=== PATIENT | male | born 1935 | race African-American/Black ===

== ENCOUNTER 2018-10-13 14:11 | Inpatient (IN) | payer MEDICARE, OTHER ==
[~2018-10-13] VITALS: Ht 182.9 cm; Wt 98.9 kg
[~2018-10-13 14:11] MED LIST: VERAPAMIL
[2018-10-13] MEDS ORDERED: ONDANSETRON HCL 4MG/2ML INJ IV STA (14:35)
[2018-10-13] MEDS ORDERED: SODIUM CHLORIDE 0.9% 1,000 ML IV ONE (14:35)
[2018-10-13 15:04] LABS: BASOPHILS % 0.7 % (0.0-2.0); EOSINOPHILS % 0.1 % (0.0-5.0); HEMATOCRIT. 31.4 % (42.0-52.0); HEMOGLOBIN. 10.1 g/dL (14.0-18.0); LYMPHOCYTES % 17.7 % (20.0-50.0); MEAN CORPUSCULAR HEMOGLOBIN 28.6 pg (28.0-32.0); MEAN CORPUSCULAR VOLUME 89.5 fL (80.0-94.0); MEAN PLATELET VOLUME 8.9 fl (7.4-10.4); NEUTROPHILS % 68.5 % (40.0-76.0); PLATELET 147 x1000/uL (130-400); RED BLOOD CELL COUNT 3.52 mill/uL (4.7-6.1); RED CELL DISTRIBUTION WIDTH 14.7 % (11.6-14.6)
[2018-10-13 15:12] LABS: INR 1.2; PROTHROMBIN TIME 11.8 sec (9.1-11.1)
[2018-10-13 15:19] LABS: CHLORIDE 108 mEq/L (98-107)
[2018-10-13] MEDS ORDERED: PANTOPRAZOLE SODIUM 40 MG/VIAL IV ONE (16:00)
[2018-10-13] MEDS ORDERED: SODIUM CHLORIDE 0.9% 1,000 ML IV SCH (20:26)
[2018-10-13] MEDS ORDERED: DIPHENHYDRAMINE 50MG/ML VIAL IV PRN (20:30)
[2018-10-13] MEDS ORDERED: ONDANSETRON HCL 4MG/2ML INJ IV PRN (20:30)
[2018-10-13] MEDS ORDERED: PANTOPRAZOLE SODIUM 40 MG/VIAL IV SCH (21:00)
[2018-10-13] MEDS: ACETAMINOPHEN 325MG TABLET PO PRN (23:10)
[2018-10-14] MEDS ORDERED: DEXTROSE 50% WATER 50ML SYRINGE IV PRN (01:25)
[2018-10-14] MEDS: INSULIN LISPRO 100 UNITS/ML SUBCUT SCH ×4 (01:35→21:08)
[2018-10-14 05:54] LABS: HEMATOCRIT. 29.4 % (42.0-52.0); HEMOGLOBIN. 9.4 g/dL (14.0-18.0); MEAN CORPUSCULAR HEMOGLOBIN 28.8 pg (28.0-32.0); MEAN CORPUSCULAR VOLUME 90.3 fL (80.0-94.0); MEAN PLATELET VOLUME 9.3 fl (7.4-10.4); PLATELET 149 x1000/uL (130-400); RED BLOOD CELL COUNT 3.25 mill/uL (4.7-6.1); RED CELL DISTRIBUTION WIDTH 14.9 % (11.6-14.6)
[2018-10-14 06:03] LABS: CHLORIDE 109 mEq/L (98-107)
[2018-10-14 06:17] LABS: INR 1.1; PARTIAL THROMBOPLASTIN TIME 23.6 sec (23.4-31.0)
[2018-10-14 07:03] LABS: PLATELET ESTIMATE NORMAL
[2018-10-14] MEDS: ACETAMINOPHEN 325MG TABLET PO PRN ×4 (07:22→21:17)
[2018-10-14] MEDS ORDERED: VER40 MT (10:05)
[2018-10-14] MEDS ORDERED: VERA240C2 MT (10:08)
[2018-10-14] MEDS ORDERED: NAPR500T7 MT (10:08)
[2018-10-14] MEDS ORDERED: GABA-531 MT (10:08)
[2018-10-14 10:16] VITALS: BP 154/90
[2018-10-14] MEDS: PANTOPRAZOLE SODIUM 40 MG/VIAL IV SCH ×2 (11:15→21:17)
[2018-10-14 12:00] VITALS: BP_SYST 154; BP_SYST 54; BP_DIAS 89
[2018-10-14] MEDS: BLOOD SUGAR DIAGNOSTIC STRIP TEST SCH ×3 (12:42→21:11)
[2018-10-14] MEDS ORDERED: SIMETHICONE 40 MG/0.6 ML 30ML ONE (15:01)
[2018-10-14] MEDS ORDERED: MIDAZOLAM HCL 2 MG/2 ML VIAL IV PRN (15:06)
[2018-10-14] MEDS ORDERED: MIDAZOLAM HCL 5 MG/5 ML VIAL ONE (15:11)
[2018-10-14] MEDS ORDERED: FENTANYL CITRATE/PF 50MCG/ML 2ML VIAL ONE (15:11)
[2018-10-14] MEDS ORDERED: SODIUM CHLORIDE 0.9% 10ML VIAL ONE (16:10)
[2018-10-14 17:21] VITALS: BP 185/101
[2018-10-14] MEDS ORDERED: HYDRALAZINE 20MG/ML VIAL IV PRN (17:30)
[2018-10-14] MEDS ORDERED: CLONIDINE 0.1MG TABLET PO PRN (17:30)
[2018-10-14] MEDS ORDERED: IPRATROPIUM/ALBUTEROL 0.5-3(2.5)MG/3ML NEB HHN PRN (17:30)
[2018-10-14 20:00] VITALS: BP 119/71
[2018-10-14] MEDS: SUCRALFATE 1 G/10 ML UDC PO SCH (21:17)
[2018-10-14] MEDS: GABAPENTIN 300MG CAPSULE PO SCH (21:17)
[2018-10-14] MEDS: VERAPAMIL HCL 80 MG TABLET PO SCH (21:21)
[2018-10-15] VITALS: BP 104/63
[2018-10-15 03:59] VITALS: BP 130/78
[2018-10-15] MEDS: ACETAMINOPHEN 325MG TABLET PO PRN (04:35)
[2018-10-15] MEDS: VERAPAMIL HCL 80 MG TABLET PO SCH ×2 (05:14→14:45)
[2018-10-15] MEDS: GABAPENTIN 300MG CAPSULE PO SCH ×2 (05:14→14:45)
[2018-10-15] MEDS: SUCRALFATE 1 G/10 ML UDC PO SCH ×2 (05:14→13:14)
[2018-10-15] MEDS: INSULIN LISPRO 100 UNITS/ML SUBCUT SCH ×2 (06:28→13:16)
[2018-10-15] MEDS: BLOOD SUGAR DIAGNOSTIC STRIP TEST SCH ×2 (06:29→13:06)
[2018-10-15] MEDS: PANTOPRAZOLE SODIUM 40 MG/VIAL IV SCH (10:22)
[2018-10-15 13:00] VITALS: BP 120/70
[2018-10-15 13:36] VITALS: BP 120/70
[2018-10-15 14:43] VITALS: BP 122/74
== END 2018-10-15 15:47 | disposition home or self-care (01) | DRG 378 ==
LOC: ER 14:14 → 8WST 16:18 → EDBEDREQ 16:28 → ENRESERV 10-14 07:22
PROVIDERS: ADMIT Internal Medicine; ATTEND Internal Medicine
PROC: 0DB68ZX Excision of Stomach, Via Natural or Artificial Opening Endoscopic, Diagnostic (ICD-10-PCS; principal; 2018-10-14)
DX: K29.71 Gastritis, unspecified, with bleeding (principal); I67.82 Cerebral ischemia; N17.9 Acute kidney failure, unspecified; K25.4 Chronic or unspecified gastric ulcer with hemorrhage; K44.9 Diaphragmatic hernia without obstruction or gangrene; D64.9 Anemia, unspecified; I10 Essential (primary) hypertension; M19.90 Unspecified osteoarthritis, unspecified site; M50.30 Other cervical disc degeneration, unspecified cervical region; E11.65 Type 2 diabetes mellitus with hyperglycemia; T39.395A Adverse effect of other nonsteroidal anti-inflammatory drugs [NSAID], initial encounter; Y92.89 Other specified places as the place of occurrence of the external cause; Z83.3 Family history of diabetes mellitus; Z87.11 Personal history of peptic ulcer disease; Z79.899 Other long term (current) drug therapy
CPT/HCPCS: 36415; 71045; 82962; 83036; 84484; 86850; 86900; 88305; 88312; 88313; 93005; 93970; 96361; 96374; 96375; 99285; C9113; J1815; J2250; J2405; J3010; J7030; J7620

== ENCOUNTER 2019-01-31 07:36 | Emergency (ER) | payer MEDICARE, OTHER ==
[~2019-01-31] VITALS: Ht 182.9 cm; Wt 91.4 kg
[~2019-01-31 07:36] MED LIST changes: +GABA-531 MT; +NAPR500T7 MT; +VERA240C2 MT; -VERAPAMIL
[2019-01-31] MEDS ORDERED: ONDANSETRON HCL 4MG/2ML INJ IV STA (07:56)
[2019-01-31] MEDS ORDERED: SODIUM CHLORIDE 0.9% 1,000 ML IV ONE (07:56)
[2019-01-31] MEDS ORDERED: MORPHINE SULFATE 4 MG/ML CPJ (NOT FOR IM USE) IV STA (07:56)
[2019-01-31] MEDS ORDERED: HYDRALAZINE 20MG/ML VIAL IV ONE (08:00)
[2019-01-31 08:14] LABS: BASOPHILS % 0.7 % (0.0-2.0); EOSINOPHILS % 1.8 % (0.0-5.0); HEMOGLOBIN. 13.3 g/dL (14.0-18.0); LYMPHOCYTES % 58.7 % (20.0-50.0); MEAN CORPUSCULAR HEMOGLOBIN 24.9 pg (28.0-32.0); MEAN CORPUSCULAR VOLUME 80.5 fL (80.0-94.0); MEAN PLATELET VOLUME 8.6 fl (7.4-10.4); MONOCYTES % 13.7 % (2.0-8.0); NEUTROPHILS % 25.1 % (40.0-76.0); PLATELET 144 x1000/uL (130-400); RED BLOOD CELL COUNT 5.33 mill/uL (4.7-6.1); RED CELL DISTRIBUTION WIDTH 23.7 % (11.6-14.6)
[2019-01-31 08:17] LABS: CHLORIDE 108 mEq/L (98-107)
[2019-01-31 08:23] LABS: LDL CHOLESTEROL 96 mg/dL (5-100)
[2019-01-31 08:29] LABS: PARTIAL THROMBOPLASTIN TIME 25.8 sec (23.4-31.0); PROTHROMBIN TIME 10.3 sec (9.6-11.0)
[2019-01-31 08:38] LABS: PLATELET ESTIMATE NORMAL
[2019-01-31 09:08] LABS: CLARITY URINE CLEAR (CLEAR); COLOR URINE YELLOW (YELLOW); KETONES URINE NEGATIVE (NEGATIVE); LEUKOCYTE ESTERASE URINE NEGATIVE (NEGATIVE); NITRITE URINE NEGATIVE (NEGATIVE); OCCULT BLOOD URINE NEGATIVE (NEGATIVE); PH URINE 5.5 (4.5-8.0); PROTEIN URINE NEGATIVE (NEGATIVE); SPECIFIC GRAVITY URINE 1.025 (1.005-1.030); UROBILINOGEN URINE 0.2 E.U./dL (0.2-1.0)
[2019-01-31] MEDS ORDERED: ASPIRIN 325MG EC TABLET PO ONE (10:00)
[2019-01-31] MEDS ORDERED: IOHEXOL-350 100 ML BOTTLE ONE (12:18)
[2019-01-31 12:50] VITALS: BP 148/76
== END 2019-01-31 13:48 | disposition short-term general hospital (02) ==
LOC: ER 07:36
DX: I63.9 Cerebral infarction, unspecified (principal); I10 Essential (primary) hypertension; I77.1 Stricture of artery; E11.9 Type 2 diabetes mellitus without complications
CPT/HCPCS: 36415; 70450; 70496; 70498; 71045; 80053; 81003; 82962; 83721; 84484; 85025; 85610; 85730; 93005; 96374; 96375; 99285; J0360; J2270; J2405; J7030; Q9967

== ENCOUNTER 2019-05-04 01:19 | Inpatient (IN) | payer MEDICARE, OTHER ==
[~2019-05-04] VITALS: Ht 182.9 cm; Wt 99.8 kg
[2019-05-04] MEDS ORDERED: SODIUM CHLORIDE 0.9% 1,000 ML IV ONE (02:06)
[2019-05-04] MEDS ORDERED: KETOROLAC 30MG/ML VIAL IV STA (02:06)
[2019-05-04 02:31] LABS: BASOPHILS % 0.9 % (0.0-2.0); EOSINOPHILS % 0.4 % (0.0-5.0); HEMATOCRIT. 41.6 % (42.0-52.0); HEMOGLOBIN. 13.7 g/dL (14.0-18.0); LYMPHOCYTES % 37.1 % (20.0-50.0); MEAN CORPUSCULAR HEMOGLOBIN 29.9 pg (28.0-32.0); MEAN CORPUSCULAR VOLUME 90.8 fL (80.0-94.0); MEAN PLATELET VOLUME 7.6 fl (7.4-10.4); MONOCYTES % 13.3 % (2.0-8.0); NEUTROPHILS % 48.3 % (40.0-76.0); PLATELET 194 x1000/uL (130-400); RED BLOOD CELL COUNT 4.58 mill/uL (4.7-6.1); RED CELL DISTRIBUTION WIDTH 16.7 % (11.6-14.6)
[2019-05-04 02:36] LABS: CHLORIDE 111 mEq/L (98-107)
[2019-05-04 02:38] LABS: PROTHROMBIN TIME 10.8 sec (9.6-11.0)
[2019-05-04 02:41] LABS: ETHANOL BLOOD 269 mg/dL
[2019-05-04] MEDS ORDERED: ASPIRIN 81MG TABLET PO ONE (04:45)
[2019-05-04 05:02] LABS: CLARITY URINE CLEAR (CLEAR); COLOR URINE YELLOW (YELLOW); KETONES URINE NEGATIVE (NEGATIVE); LEUKOCYTE ESTERASE URINE TRACE (NEGATIVE); NITRITE URINE NEGATIVE (NEGATIVE); OCCULT BLOOD URINE NEGATIVE (NEGATIVE); PROTEIN URINE NEGATIVE (NEGATIVE); SPECIFIC GRAVITY URINE 1.017 (1.005-1.030); UROBILINOGEN URINE 0.2 E.U./dL (0.2-1.0)
[2019-05-04 05:32] LABS: *AMPHETAMINES SCREEN URINE NEGATIVE (NEGATIVE); *BARBITURATES SCREEN URINE NEGATIVE (NEGATIVE)
[2019-05-04 05:33] LABS: *BENZODIAZEPINES SCREEN URINE NEGATIVE (NEGATIVE); *COCAINE SCREEN URINE NEGATIVE (NEGATIVE); CANNABINOID URINE SCREEN NEGATIVE (NEGATIVE); METHADONE URINE SCREEN NEGATIVE (NEGATIVE); OPIATES URINE SCREEN NEGATIVE (NEGATIVE); PHENCYCLIDINE URINE SCREEN NEGATIVE (NEGATIVE)
[2019-05-04] MEDS ORDERED: CEFTRIAXONE 1 G PREMIX 50 ML IV ONE (05:45)
[2019-05-04] MEDS ORDERED: DOCUSATE SODIUM 100MG CAPSULE PO PRN (09:45)
[2019-05-04] MEDS ORDERED: ONDANSETRON HCL 4MG/2ML INJ IV PRN (09:45)
[2019-05-04] MEDS ORDERED: MAGNESIUM/ALUMINUM HYDROXIDE/SIMETHICONE 30ML UDC PO PRN (09:45)
[2019-05-04] MEDS ORDERED: IPRATROPIUM/ALBUTEROL 0.5-3(2.5)MG/3ML NEB INH PRN (09:45)
[2019-05-04] MEDS ORDERED: NITROGLYCERIN 0.4MG TABLET SL SL PRN (09:45)
[2019-05-04] MEDS ORDERED: GUAIFENESIN 200MG/10ML SUGAR FREE UDC PO PRN (09:45)
[2019-05-04 10:00] VITALS: BP 147/77
[2019-05-04] MEDS ORDERED: KETOROLAC 15MG/ML VIAL IV PRN (10:45)
[2019-05-04] MEDS ORDERED: MVI, ADULT NO.1 10 ML, FOLIC ACID 1 MG, THIAMINE HCL 100 MG in SODIUM CHLORIDE 0.9% 1,0... IV ONE ×4 (11:00)
[2019-05-04 12:00] VITALS: BP 162/91
[2019-05-04] MEDS: ENOXAPARIN 40MG/0.4ML SYR SUBCUT SCH (12:26)
[2019-05-04] MEDS: SUCRALFATE 1 G/10 ML UDC PO SCH ×3 (12:26→21:20)
[2019-05-04] MEDS: METOPROLOL TARTRATE 25MG TABLET PO SCH ×2 (12:27→21:20)
[2019-05-04] MEDS: TRAMADOL 50MG TABLET PO PRN (12:27)
[2019-05-04] MEDS: LEVOFLOXACIN 500MG PREMIX 100 ML IV SCH (12:27)
[2019-05-04] MEDS: FAMOTIDINE 20MG TABLET PO SCH ×2 (12:27→21:20)
[2019-05-04] MEDS ORDERED: PNEUMOCOCCAL 23-VAL P-SAC VAC 0.5 ML IM ONE (14:00)
[2019-05-04 16:00] VITALS: BP 164/91
[2019-05-04] MEDS: ACETAMINOPHEN 325MG TABLET PO PRN (17:55)
[2019-05-04] MEDS: CLONIDINE 0.1MG TABLET PO PRN (17:58)
[2019-05-04 20:00] VITALS: BP 166/92
[2019-05-04] MEDS ORDERED: ZOLPIDEM TARTRATE 5MG TABLET PO PRN (21:00)
[2019-05-05] VITALS: BP 147/82
[2019-05-05 00:25] LABS: CREATINE KINASE MB FRACTION 4.9 ng/mL (0.5-3.6)
[2019-05-05] MEDS: TRAMADOL 50MG TABLET PO PRN (05:39)
[2019-05-05] MEDS: CLONIDINE 0.1MG TABLET PO PRN (05:40)
[2019-05-05] MEDS: SUCRALFATE 1 G/10 ML UDC PO SCH ×4 (06:09→21:12)
[2019-05-05] MEDS: ENOXAPARIN 40MG/0.4ML SYR SUBCUT SCH (08:30)
[2019-05-05] MEDS: METOPROLOL TARTRATE 25MG TABLET PO SCH ×2 (08:30→21:12)
[2019-05-05] MEDS: FAMOTIDINE 20MG TABLET PO SCH ×2 (08:30→21:12)
[2019-05-05] MEDS: ACETAMINOPHEN 325MG TABLET PO PRN (08:42)
[2019-05-05 12:00] VITALS: BP 103/64
[2019-05-05] MEDS: LEVOFLOXACIN 500MG PREMIX 100 ML IV SCH (16:33)
[2019-05-05 20:00] VITALS: BP 121/70
[2019-05-06] VITALS: BP 118/68
[2019-05-06] MEDS: LORAZEPAM 0.5MG TABLET PO PRN ×3 (03:24→16:24)
[2019-05-06 04:00] VITALS: BP 160/90
[2019-05-06] MEDS: CLONIDINE 0.1MG TABLET PO PRN (04:53)
[2019-05-06] MEDS: SUCRALFATE 1 G/10 ML UDC PO SCH ×4 (07:00→20:46)
[2019-05-06] MEDS: METOPROLOL TARTRATE 25MG TABLET PO SCH ×2 (07:48→20:45)
[2019-05-06] MEDS: FAMOTIDINE 20MG TABLET PO SCH ×2 (07:48→20:45)
[2019-05-06 08:00] VITALS: BP 129/89
[2019-05-06] MEDS: ENOXAPARIN 40MG/0.4ML SYR SUBCUT SCH (12:25)
[2019-05-06] MEDS: LEVOFLOXACIN 500MG TABLET PO SCH (14:28)
[2019-05-06 16:00] VITALS: BP 140/77
[2019-05-06 20:00] VITALS: BP 143/88
[2019-05-07] VITALS (7 sets, daily range): BP systolic 81–156; BP diastolic 43–86
[2019-05-07] MEDS: TRAMADOL 50MG TABLET PO PRN (04:10)
[2019-05-07] MEDS: SUCRALFATE 1 G/10 ML UDC PO SCH ×3 (06:41→16:56)
[2019-05-07] MEDS: FAMOTIDINE 20MG TABLET PO SCH (08:59)
[2019-05-07] MEDS: METOPROLOL TARTRATE 25MG TABLET PO SCH (08:59)
[2019-05-07] MEDS: ENOXAPARIN 40MG/0.4ML SYR SUBCUT SCH (09:00)
[2019-05-07] MEDS ORDERED: THIAMINE HCL 100MG TABLET PO SCH (09:15)
[2019-05-07] MEDS ORDERED: FOLIC ACID 1MG TABLET PO SCH (09:15)
[2019-05-07] MEDS ORDERED: MULTIVITAMINS,THER W-MINERALS TABLET PO SCH (09:15)
[2019-05-07] MEDS: LEVOFLOXACIN 500MG TABLET PO SCH (12:32)
== END 2019-05-07 18:30 | DRG 91 ==
LOC: ER 01:19 → 8WST 05:48 → EDBEDREQ 05:50 → EDBEDREQTM 05:50 → ENRESERV 07:59
PROVIDERS: ADMIT Internal Medicine; ATTEND Internal Medicine
DX: G92 Toxic encephalopathy (principal); G82.50 Quadriplegia, unspecified; N39.0 Urinary tract infection, site not specified; M62.82 Rhabdomyolysis; G95.20 Unspecified cord compression; F10.239 Alcohol dependence with withdrawal, unspecified; D63.8 Anemia in other chronic diseases classified elsewhere; Y90.8 Blood alcohol level of 240 mg/100 ml or more; I10 Essential (primary) hypertension; E11.9 Type 2 diabetes mellitus without complications; R26.9 Unspecified abnormalities of gait and mobility; E78.5 Hyperlipidemia, unspecified; E78.00 Pure hypercholesterolemia, unspecified; M48.02 Spinal stenosis, cervical region; E11.65 Type 2 diabetes mellitus with hyperglycemia; F10.229 Alcohol dependence with intoxication, unspecified; Z53.20 Procedure and treatment not carried out because of patient's decision for unspecified reasons; Z82.49 Family history of ischemic heart disease and other diseases of the circulatory system; Z79.84 Long term (current) use of oral hypoglycemic drugs; M47.892 Other spondylosis, cervical region
CPT/HCPCS: 36415; 70551; 71045; 72141; 73030; 73070; 73090; 73110; 80061; 80305; 80320; 82550; 82553; 83036; 83880; 84484; 93005; 93970; 96361; 96374; 97110; 97116; 97162; 97166; 99285; J0696; J1650; J1885; J1956; J3411; J3490; J7030; G0480

== ENCOUNTER 2019-05-07 18:40 | Inpatient (IN) | payer MEDICARE, OTHER ==
[~2019-05-07] VITALS: Ht 182.9 cm; Wt 99.8 kg
[2019-05-07 19:15] VITALS: BP 141/73
[2019-05-07 20:00] VITALS: BP 134/79
[2019-05-07] MEDS ORDERED: CLONIDINE 0.1MG TABLET PO PRN (20:00)
[2019-05-07] MEDS ORDERED: NITROGLYCERIN 0.4MG TABLET SL SL PRN (20:00)
[2019-05-07] MEDS ORDERED: MAGNESIUM/ALUMINUM HYDROXIDE/SIMETHICONE 30ML UDC PO PRN (20:00)
[2019-05-07] MEDS ORDERED: ACETAMINOPHEN 325MG TABLET PO PRN (20:00)
[2019-05-07] MEDS ORDERED: IPRATROPIUM/ALBUTEROL 0.5-3(2.5)MG/3ML NEB HHN PRN (20:00)
[2019-05-07] MEDS ORDERED: GUAIFENESIN 200MG/10ML SUGAR FREE UDC PO PRN (20:00)
[2019-05-07] MEDS ORDERED: DOCUSATE SODIUM 100MG CAPSULE PO PRN (20:00)
[2019-05-07] MEDS ORDERED: LORAZEPAM 0.5MG TABLET PO PRN (20:00)
[2019-05-07] MEDS ORDERED: ONDANSETRON HCL 4MG TABLET PO PRN (20:00)
[2019-05-07] MEDS ORDERED: ZOLPIDEM TARTRATE 5MG TABLET PO PRN (20:00)
[2019-05-07] MEDS: SUCRALFATE 1 G/10 ML UDC PO SCH (21:49)
[2019-05-07] MEDS: FAMOTIDINE 20MG TABLET PO SCH (21:49)
[2019-05-07] MEDS: METOPROLOL TARTRATE 25MG TABLET PO SCH (21:50)
[2019-05-08] MEDS ORDERED: PNEUMOCOCCAL 23-VAL P-SAC VAC 0.5 ML IM ONE (04:45)
[2019-05-08] MEDS: SUCRALFATE 1 G/10 ML UDC PO SCH ×4 (06:34→22:04)
[2019-05-08 08:00] VITALS: BP 151/77
[2019-05-08 08:00] LABS: HEMATOCRIT. 39.4 % (42.0-52.0); HEMOGLOBIN. 12.9 g/dL (14.0-18.0); MEAN CORPUSCULAR HEMOGLOBIN 29.7 pg (28.0-32.0); MEAN PLATELET VOLUME 8.8 fl (7.4-10.4); PLATELET 205 x1000/uL (130-400); RED BLOOD CELL COUNT 4.34 mill/uL (4.7-6.1)
[2019-05-08 08:03] LABS: CHLORIDE 103 mEq/L (98-107)
[2019-05-08] MEDS: METOPROLOL TARTRATE 25MG TABLET PO SCH ×2 (09:33→22:00)
[2019-05-08] MEDS: MULTIVITAMINS,THER W-MINERALS TABLET PO SCH (09:33)
[2019-05-08] MEDS: FAMOTIDINE 20MG TABLET PO SCH ×2 (09:33→22:04)
[2019-05-08] MEDS: THIAMINE HCL 100MG TABLET PO SCH (09:33)
[2019-05-08] MEDS: ENOXAPARIN 40MG/0.4ML SYR SUBCUT SCH (09:33)
[2019-05-08] MEDS: FOLIC ACID 1MG TABLET PO SCH (09:34)
[2019-05-08] MEDS: LEVOFLOXACIN 500MG TABLET PO SCH (10:03)
[2019-05-08] MEDS: TRAMADOL 50MG TABLET PO PRN (12:30)
[2019-05-08] MEDS ORDERED: DEXTROSE 50% WATER 50ML SYRINGE IV PRN (15:45)
[2019-05-08] MEDS: BLOOD SUGAR DIAGNOSTIC STRIP TEST SCH ×2 (16:11→22:00)
[2019-05-08] MEDS: INSULIN LISPRO 100 UNITS/ML SUBCUT SCH ×2 (16:51→22:00)
[2019-05-08 20:00] VITALS: BP 138/82
[2019-05-08 20:46] LABS: PLATELET ESTIMATE NORMAL
[2019-05-09] MEDS: SUCRALFATE 1 G/10 ML UDC PO SCH ×4 (06:00→20:58)
[2019-05-09] MEDS: INSULIN LISPRO 100 UNITS/ML SUBCUT SCH ×4 (06:03→21:14)
[2019-05-09] MEDS: BLOOD SUGAR DIAGNOSTIC STRIP TEST SCH ×4 (06:03→20:59)
[2019-05-09 08:00] VITALS: BP 148/77
[2019-05-09] MEDS: FAMOTIDINE 20MG TABLET PO SCH ×2 (09:08→20:58)
[2019-05-09] MEDS: MULTIVITAMINS,THER W-MINERALS TABLET PO SCH (09:08)
[2019-05-09] MEDS: THIAMINE HCL 100MG TABLET PO SCH (09:08)
[2019-05-09] MEDS: METOPROLOL TARTRATE 25MG TABLET PO SCH ×2 (09:08→21:10)
[2019-05-09] MEDS: FOLIC ACID 1MG TABLET PO SCH (09:08)
[2019-05-09] MEDS: ENOXAPARIN 40MG/0.4ML SYR SUBCUT SCH (10:15)
[2019-05-09] MEDS: LEVOFLOXACIN 500MG TABLET PO SCH (11:31)
[2019-05-09 20:00] VITALS: BP 160/80
[2019-05-10 05:58] LABS: CHLORIDE 105 mEq/L (98-107)
[2019-05-10 06:07] LABS: TOTAL IRON BINDING CAPACITY 233 ug/dL (250-450)
[2019-05-10 06:19] LABS: HEMATOCRIT. 38.1 % (42.0-52.0); HEMOGLOBIN. 12.4 g/dL (14.0-18.0); MEAN CORPUSCULAR HEMOGLOBIN 29.7 pg (28.0-32.0); MEAN CORPUSCULAR VOLUME 91.1 fL (80.0-94.0); MEAN PLATELET VOLUME 8.8 fl (7.4-10.4); PLATELET 227 x1000/uL (130-400); RED BLOOD CELL COUNT 4.18 mill/uL (4.7-6.1); RED CELL DISTRIBUTION WIDTH 15.9 % (11.6-14.6)
[2019-05-10 06:26] LABS: FOLIC ACID (FOLATE) SERUM > 20.00 ng/mL (>5.38)
[2019-05-10 06:35] LABS: VITAMIN B12 SERUM 688 pg/mL (211-911)
[2019-05-10] MEDS: SUCRALFATE 1 G/10 ML UDC PO SCH ×4 (07:03→21:28)
[2019-05-10] MEDS: BLOOD SUGAR DIAGNOSTIC STRIP TEST SCH ×4 (07:03→20:29)
[2019-05-10 08:00] VITALS: BP 145/70
[2019-05-10] MEDS: INSULIN LISPRO 100 UNITS/ML SUBCUT SCH ×4 (08:07→21:27)
[2019-05-10] MEDS: TRAMADOL 50MG TABLET PO PRN (09:24)
[2019-05-10] MEDS: MULTIVITAMINS,THER W-MINERALS TABLET PO SCH (09:24)
[2019-05-10] MEDS: FOLIC ACID 1MG TABLET PO SCH (09:24)
[2019-05-10] MEDS: FAMOTIDINE 20MG TABLET PO SCH ×2 (09:24→21:36)
[2019-05-10] MEDS: THIAMINE HCL 100MG TABLET PO SCH (09:26)
[2019-05-10] MEDS: METOPROLOL TARTRATE 25MG TABLET PO SCH ×2 (09:26→21:28)
[2019-05-10] MEDS: ENOXAPARIN 40MG/0.4ML SYR SUBCUT SCH (09:26)
[2019-05-10 12:49] LABS: FERRITIN 177 ng/mL (22-322)
[2019-05-10 12:50] LABS: PROSTRATE SPECIFIC AG TOTAL 31.77 ng/mL (0.0-4.0)
[2019-05-10] MEDS: LEVOFLOXACIN 500MG TABLET PO SCH (13:12)
[2019-05-10] MEDS: MAGNESIUM OXIDE 400MG TABLET PO SCH ×2 (13:13→21:28)
[2019-05-10 13:20] LABS: PLATELET ESTIMATE NORMAL
[2019-05-10 20:00] VITALS: BP 134/74
[2019-05-11] MEDS: SUCRALFATE 1 G/10 ML UDC PO SCH ×4 (06:12→21:24)
[2019-05-11] MEDS: INSULIN LISPRO 100 UNITS/ML SUBCUT SCH ×4 (06:16→21:38)
[2019-05-11] MEDS: BLOOD SUGAR DIAGNOSTIC STRIP TEST SCH ×4 (06:16→21:38)
[2019-05-11 07:53] VITALS: BP 172/84
[2019-05-11] MEDS: MAGNESIUM OXIDE 400MG TABLET PO SCH ×2 (08:36→21:39)
[2019-05-11] MEDS: METOPROLOL TARTRATE 25MG TABLET PO SCH ×2 (08:36→21:26)
[2019-05-11] MEDS: THIAMINE HCL 100MG TABLET PO SCH (08:36)
[2019-05-11] MEDS: MULTIVITAMINS,THER W-MINERALS TABLET PO SCH (08:36)
[2019-05-11] MEDS: ENOXAPARIN 40MG/0.4ML SYR SUBCUT SCH (08:37)
[2019-05-11] MEDS: FAMOTIDINE 20MG TABLET PO SCH ×2 (08:37→21:25)
[2019-05-11] MEDS: FOLIC ACID 1MG TABLET PO SCH (08:37)
[2019-05-11] MEDS: LEVOFLOXACIN 500MG TABLET PO SCH (11:28)
[2019-05-11] MEDS: FERROUS SULFATE 325MG TABLET PO SCH ×2 (12:34→16:38)
[2019-05-11] MEDS: ASCORBIC ACID 500 MG TABLET PO SCH (12:34)
[2019-05-11 20:00] VITALS: BP 133/85
[2019-05-12] MEDS: SUCRALFATE 1 G/10 ML UDC PO SCH ×4 (06:21→21:44)
[2019-05-12] MEDS: BLOOD SUGAR DIAGNOSTIC STRIP TEST SCH ×4 (06:21→21:45)
[2019-05-12] MEDS: INSULIN LISPRO 100 UNITS/ML SUBCUT SCH ×4 (06:21→21:54)
[2019-05-12 07:11] LABS: HEMATOCRIT. 38.2 % (42.0-52.0); HEMOGLOBIN. 12.6 g/dL (14.0-18.0); MEAN CORPUSCULAR HEMOGLOBIN 29.8 pg (28.0-32.0); MEAN CORPUSCULAR VOLUME 90.7 fL (80.0-94.0); MEAN PLATELET VOLUME 8.3 fl (7.4-10.4); PLATELET 256 x1000/uL (130-400); RED BLOOD CELL COUNT 4.21 mill/uL (4.7-6.1); RED CELL DISTRIBUTION WIDTH 15.5 % (11.6-14.6)
[2019-05-12 07:45] LABS: CHLORIDE 107 mEq/L (98-107)
[2019-05-12 08:08] VITALS: BP 143/75
[2019-05-12] MEDS: MULTIVITAMINS,THER W-MINERALS TABLET PO SCH (08:17)
[2019-05-12] MEDS: FERROUS SULFATE 325MG TABLET PO SCH ×3 (08:17→17:22)
[2019-05-12] MEDS: MAGNESIUM OXIDE 400MG TABLET PO SCH ×2 (08:17→21:45)
[2019-05-12] MEDS: THIAMINE HCL 100MG TABLET PO SCH (08:18)
[2019-05-12] MEDS: FAMOTIDINE 20MG TABLET PO SCH ×2 (08:18→21:45)
[2019-05-12] MEDS: ASCORBIC ACID 500 MG TABLET PO SCH (08:18)
[2019-05-12] MEDS: FOLIC ACID 1MG TABLET PO SCH (08:18)
[2019-05-12] MEDS: METOPROLOL TARTRATE 25MG TABLET PO SCH ×2 (08:18→21:45)
[2019-05-12] MEDS: ENOXAPARIN 40MG/0.4ML SYR SUBCUT SCH (08:19)
[2019-05-12] MEDS: LEVOFLOXACIN 500MG TABLET PO SCH (10:49)
[2019-05-12] MEDS: TRAMADOL 50MG TABLET PO PRN (10:50)
[2019-05-12 20:00] VITALS: BP 150/79
[2019-05-12 22:06] LABS: PLATELET ESTIMATE NORMAL
[2019-05-13] MEDS: SUCRALFATE 1 G/10 ML UDC PO SCH ×4 (05:54→21:23)
[2019-05-13] MEDS: INSULIN LISPRO 100 UNITS/ML SUBCUT SCH ×4 (05:54→21:19)
[2019-05-13] MEDS: BLOOD SUGAR DIAGNOSTIC STRIP TEST SCH ×4 (05:54→21:00)
[2019-05-13 08:04] VITALS: BP 158/83
[2019-05-13] MEDS: FERROUS SULFATE 325MG TABLET PO SCH ×3 (09:10→16:16)
[2019-05-13] MEDS: THIAMINE HCL 100MG TABLET PO SCH (09:10)
[2019-05-13] MEDS: MAGNESIUM OXIDE 400MG TABLET PO SCH ×2 (09:10→21:20)
[2019-05-13] MEDS: MULTIVITAMINS,THER W-MINERALS TABLET PO SCH (09:10)
[2019-05-13] MEDS: ASCORBIC ACID 500 MG TABLET PO SCH (09:10)
[2019-05-13] MEDS: FAMOTIDINE 20MG TABLET PO SCH ×2 (09:10→21:17)
[2019-05-13] MEDS: FOLIC ACID 1MG TABLET PO SCH (09:10)
[2019-05-13] MEDS: METOPROLOL TARTRATE 25MG TABLET PO SCH ×2 (09:11→21:17)
[2019-05-13] MEDS: ENOXAPARIN 40MG/0.4ML SYR SUBCUT SCH (09:11)
[2019-05-13] MEDS: LEVOFLOXACIN 500MG TABLET PO SCH (12:11)
[2019-05-13 20:00] VITALS: BP 138/72
[2019-05-14] MEDS: BLOOD SUGAR DIAGNOSTIC STRIP TEST SCH ×2 (06:11→11:23)
[2019-05-14] MEDS: INSULIN LISPRO 100 UNITS/ML SUBCUT SCH ×2 (06:11→12:15)
[2019-05-14] MEDS: SUCRALFATE 1 G/10 ML UDC PO SCH ×2 (06:11→11:22)
[2019-05-14 08:29] VITALS: BP 138/75
[2019-05-14] MEDS: FAMOTIDINE 20MG TABLET PO SCH (08:49)
[2019-05-14] MEDS: THIAMINE HCL 100MG TABLET PO SCH (08:50)
[2019-05-14] MEDS: ASCORBIC ACID 500 MG TABLET PO SCH (08:50)
[2019-05-14] MEDS: MAGNESIUM OXIDE 400MG TABLET PO SCH (08:50)
[2019-05-14] MEDS: FOLIC ACID 1MG TABLET PO SCH (08:50)
[2019-05-14] MEDS: FERROUS SULFATE 325MG TABLET PO SCH ×2 (08:51→12:13)
[2019-05-14] MEDS: MULTIVITAMINS,THER W-MINERALS TABLET PO SCH (08:51)
[2019-05-14] MEDS: METOPROLOL TARTRATE 25MG TABLET PO SCH (08:51)
[2019-05-14] MEDS: ENOXAPARIN 40MG/0.4ML SYR SUBCUT SCH (08:52)
[2019-05-14] MEDS: LEVOFLOXACIN 500MG TABLET PO SCH (11:22)
[2019-05-14 12:44] VITALS: BP 138/75
[2019-05-15 15:06] LABS: 25-HYDROXY VITAMIN D3 15 ng/mL (.)
== END 2019-05-14 14:10 | disposition home health service (06) | DRG 91 ==
PROVIDERS: ADMIT Physical Medicine & Rehabilitation Spinal Cord Injury Medicine; ATTEND Internal Medicine
DX: G92 Toxic encephalopathy (principal); G82.50 Quadriplegia, unspecified; E44.0 Moderate protein-calorie malnutrition; G95.20 Unspecified cord compression; M62.82 Rhabdomyolysis; N39.0 Urinary tract infection, site not specified; M48.02 Spinal stenosis, cervical region; M48.04 Spinal stenosis, thoracic region; R53.81 Other malaise; D63.8 Anemia in other chronic diseases classified elsewhere; E11.9 Type 2 diabetes mellitus without complications; E61.1 Iron deficiency; E78.00 Pure hypercholesterolemia, unspecified; E78.5 Hyperlipidemia, unspecified; F10.20 Alcohol dependence, uncomplicated; I51.7 Cardiomegaly; I11.9 Hypertensive heart disease without heart failure; K59.00 Constipation, unspecified; R55 Syncope and collapse; W19.XXXA Unspecified fall, initial encounter; R74.0 Nonspecific elevation of levels of transaminase and lactic acid dehydrogenase [LDH]; R97.20 Elevated prostate specific antigen [PSA]; Y93.89 Activity, other specified; Y92.89 Other specified places as the place of occurrence of the external cause; Z79.4 Long term (current) use of insulin; Z82.49 Family history of ischemic heart disease and other diseases of the circulatory system; Z87.891 Personal history of nicotine dependence; Y99.8 Other external cause status
CPT/HCPCS: 36415; 80048; 82306; 82607; 82728; 82746; 82962; 83540; 83550; 83735; 84100; 84134; 84153; 84443; 90732; 92523; 93970; 97110; 97112; 97116; 97162; 97166; 97530; 97535; J1650; J1815; G0103

== ENCOUNTER 2019-12-11 12:56 | Inpatient (IN) | payer MEDICARE, OTHER ==
[~2019-12-11] VITALS: Ht 182.9 cm; Wt 89.4 kg
[2019-12-11 13:36] LABS: BASOPHILS % 0.9 % (0.0-2.0); HEMATOCRIT. 39.7 % (42.0-52.0); HEMOGLOBIN. 12.8 g/dL (14.0-18.0); LYMPHOCYTES % 51.6 % (20.0-50.0); MEAN CORPUSCULAR HEMOGLOBIN 28.1 pg (28.0-32.0); MEAN CORPUSCULAR VOLUME 86.9 fL (80.0-94.0); MEAN PLATELET VOLUME 8.6 fl (7.4-10.4); MONOCYTES % 12.1 % (2.0-8.0); NEUTROPHILS % 34.4 % (40.0-76.0); PLATELET 182 x1000/uL (130-400); RED BLOOD CELL COUNT 4.57 mill/uL (4.7-6.1); RED CELL DISTRIBUTION WIDTH 15.3 % (11.6-14.6)
[2019-12-11 13:42] LABS: CHLORIDE 109 mEq/L (98-107)
[2019-12-11] MEDS ORDERED: SODIUM CHLORIDE 0.9% 1,000 ML IV NR (14:00)
[2019-12-11] MEDS ORDERED: CALCIUM GLUCONATE 100MG/ML 10ML VIAL IV ONE (14:15)
[2019-12-11] MEDS ORDERED: DOPAMINE 400MG/250ML PREMIX 250 ML IV ONE ×4 (14:44→23:45)
[2019-12-11] MEDS ORDERED: FENTANYL CITRATE/PF 50MCG/ML 2ML VIAL IV ONE (14:45)
[2019-12-11] MEDS ORDERED: MIDAZOLAM HCL 2 MG/2 ML VIAL IV ONE (14:45)
[2019-12-11] MEDS ORDERED: ONDANSETRON HCL 4MG/2ML INJ ONE (15:16)
[2019-12-11] MEDS ORDERED: CLONIDINE 0.1MG TABLET PO PRN (15:45)
[2019-12-11] MEDS ORDERED: MAGNESIUM/ALUMINUM HYDROXIDE/SIMETHICONE 30ML UDC PO PRN (15:45)
[2019-12-11] MEDS ORDERED: ACETAMINOPHEN 325MG TABLET PO PRN ×2 (15:45)
[2019-12-11] MEDS ORDERED: ONDANSETRON HCL 4MG/2ML INJ IV PRN (15:45)
[2019-12-11] MEDS ORDERED: IPRATROPIUM/ALBUTEROL 0.5-3(2.5)MG/3ML NEB NEB PRN (15:45)
[2019-12-11] MEDS ORDERED: DOCUSATE SODIUM 100MG CAPSULE PO PRN (15:45)
[2019-12-11] MEDS ORDERED: DEXTROSE 50% WATER 50ML SYRINGE IV PRN (15:45)
[2019-12-11] MEDS ORDERED: LORAZEPAM 0.5MG TABLET PO PRN (15:45)
[2019-12-11] MEDS ORDERED: NITROGLYCERIN 0.4MG TABLET SL SL PRN (15:45)
[2019-12-11] MEDS ORDERED: GUAIFENESIN 200MG/10ML SUGAR FREE UDC PO PRN (15:45)
[2019-12-11 16:06] LABS: PROTHROMBIN TIME 11.3 sec (9.6-11.0)
[2019-12-11] MEDS ORDERED: CALCIUM CHLORIDE 1,000 MG in DEXT 5% WATER 90 ML IV ONE (16:30)
[2019-12-11 16:41] LABS: FOLIC ACID (FOLATE) SERUM 19.7 ng/mL (>5.38)
[2019-12-11] MEDS: KETOROLAC 15MG/ML VIAL IV PRN (17:41)
[2019-12-11] MEDS: BLOOD SUGAR DIAGNOSTIC STRIP TEST SCH ×2 (17:48→21:00)
[2019-12-11] MEDS: INSULIN LISPRO 100 UNITS/ML SUBCUT SCH (17:53)
[2019-12-11] MEDS ORDERED: MVI, ADULT NO.1 10 ML, FOLIC ACID 1 MG, THIAMINE HCL 100 MG in SODIUM CHLORIDE 0.9% 1,0... IV SCH ×4 (18:00)
[2019-12-11 18:18] LABS: BG BASE EXCESS -13.1 mmol/L (-2.0-2.0); BG CARBOXYHEMOGLOBIN 0.1 % (0.5-1.5); BG DEOXYHEMOGLOBIN 4.5 % (0.0-5.0); BG HCO3 ACT 12.6 mmol/L (22.0-26.0); BG METHEMOGLOBIN 0.2 % (0.0-1.5); BG OXYGEN SATURATION 95.5 % (92.0-98.5); BG OXYHEMOGLOBIN 95.2 % (94.0-97.0); BG PCO2 29.3 mmHg (35.0-45.0); BG PH 7.252 (7.350-7.450); BG PO2 88.4 mmHg (75.0-100.0); BG SAMPLE SITE RIGHT RADIAL; BG TOTAL HEMOGLOBIN 13.5 g/dL (12.0-18.0); BG VENT MODE NASAL CANNULA
[2019-12-11] MEDS ORDERED: ENOXAPARIN 40MG/0.4ML SYR SUBCUT NR (18:45)
[2019-12-12] VITALS (30 sets, daily range): BP systolic 133–165; BP diastolic 74–130
[2019-12-12] MEDS: KETOROLAC 15MG/ML VIAL IV PRN (01:16)
[2019-12-12] MEDS: INSULIN LISPRO 100 UNITS/ML SUBCUT SCH ×5 (03:24→20:24)
[2019-12-12] MEDS ORDERED: SODIUM CHLORIDE 0.9% 1,000 ML IV ONE (08:15)
[2019-12-12 08:16] LABS: CREATINE KINASE MB FRACTION 9.6 ng/mL (0.5-3.6)
[2019-12-12] MEDS: PANTOPRAZOLE SODIUM 40 MG/VIAL IV SCH ×2 (08:26→09:00)
[2019-12-12] MEDS ORDERED: HEPARIN 5000 UNITS/ML VIAL IV SCH ×2 (08:45→11:30)
[2019-12-12] MEDS: BLOOD SUGAR DIAGNOSTIC STRIP TEST SCH ×4 (09:00→20:23)
[2019-12-12] MEDS ORDERED: ASPIRIN 325MG EC TABLET PO SCH (09:00)
[2019-12-12] MEDS ORDERED: NITROGLYCERIN 50MCG/ML 10ML VIAL (CATH LAB) IV ONE (10:55)
[2019-12-12] MEDS ORDERED: NICARDIPINE 100MCG/ML 10ML VIAL (CATH LAB) IV ONE (10:55)
[2019-12-12] MEDS ORDERED: HEPARIN SODIUM 1,000 UNIT/1ML VIAL IV ONE (10:55)
[2019-12-12] MEDS ORDERED: HEPARIN 25,000 UNITS PREMIX 500 ML IV PRN ×2 (11:30)
[2019-12-12] MEDS ORDERED: HEPARIN 5000 UNITS/ML VIAL IV PRN ×2 (11:30)
[2019-12-12 12:51] LABS: INR 1.2
[2019-12-12] MEDS ORDERED: FENTANYL CITRATE/PF 50MCG/ML 2ML VIAL ONE (12:56)
[2019-12-12] MEDS ORDERED: MIDAZOLAM HCL 2 MG/2 ML VIAL ONE (12:56)
[2019-12-12] MEDS ORDERED: IODIXANOL 320MG/ML 100 ML BOTTLE IV ONE ×2 (12:56→13:45)
[2019-12-12] MEDS ORDERED: LIDOCAINE HCL 1% 20ML VIAL (Pyxis) INJ ONE (12:57)
[2019-12-12 13:28] LABS: PARTIAL THROMBOPLASTIN TIME 91.4 sec (23.4-31.0)
[2019-12-12] MEDS ORDERED: ATROPINE SULFATE 1MG/10ML SYR IV PRN (14:30)
[2019-12-12] MEDS ORDERED: ONDANSETRON HCL 4MG/2ML INJ IV PRN (14:30)
[2019-12-12] MEDS ORDERED: ACETAMINOPHEN 325MG TABLET PO PRN (14:30)
[2019-12-12] MEDS: FUROSEMIDE 20MG/2ML VIAL IVP SCH (18:04)
[2019-12-12] MEDS ORDERED: ATOR-2 PO (18:30)
[2019-12-12] MEDS ORDERED: PANT40SU PO (18:38)
[2019-12-12] MEDS ORDERED: THIA50TA11 MT (18:38)
[2019-12-12] MEDS ORDERED: GLIP5TAB12 PO (18:38)
[2019-12-12] MEDS ORDERED: CLOP75TA33 MT (18:38)
[2019-12-12] MEDS ORDERED: FE300LUD MT (18:38)
[2019-12-12] MEDS ORDERED: LISI-186 PO (18:38)
[2019-12-12] MEDS ORDERED: FOLI-43 PO (18:38)
[2019-12-12] MEDS ORDERED: PNEUMOCOCCAL 23-VAL P-SAC VAC 0.5 ML IM ONE (19:45)
[2019-12-12] MEDS ORDERED: ENOXAPARIN 40MG/0.4ML SYR SUBCUT SCH (20:00)
[2019-12-12] MEDS: CARVEDILOL 3.125 MG TABLET PO SCH (20:22)
[2019-12-12] MEDS: ATORVASTATIN CALCIUM 40MG TABLET PO SCH (20:22)
[2019-12-12] MEDS ORDERED: ZOLPIDEM TARTRATE 5MG TABLET PO PRN (21:00)
[2019-12-13] VITALS (45 sets, daily range): BP systolic 109–170; BP diastolic 73–112
[2019-12-13 05:43] LABS: BASOPHILS % 0.7 % (0.0-2.0); EOSINOPHILS % 0.1 % (0.0-5.0); HEMOGLOBIN. 12.4 g/dL (14.0-18.0); LYMPHOCYTES % 20.7 % (20.0-50.0); MEAN CORPUSCULAR HEMOGLOBIN 28.5 pg (28.0-32.0); MEAN CORPUSCULAR VOLUME 87.4 fL (80.0-94.0); MEAN PLATELET VOLUME 9.3 fl (7.4-10.4); MONOCYTES % 13.1 % (2.0-8.0); NEUTROPHILS % 65.4 % (40.0-76.0); PLATELET 156 x1000/uL (130-400); RED BLOOD CELL COUNT 4.34 mill/uL (4.7-6.1); RED CELL DISTRIBUTION WIDTH 15.3 % (11.6-14.6)
[2019-12-13 05:58] LABS: CHLORIDE 110 mEq/L (98-107)
[2019-12-13] MEDS: INSULIN LISPRO 100 UNITS/ML SUBCUT SCH ×4 (08:33→21:20)
[2019-12-13] MEDS: FUROSEMIDE 20MG/2ML VIAL IVP SCH (08:34)
[2019-12-13] MEDS: ASPIRIN 325MG TABLET PO SCH (08:34)
[2019-12-13] MEDS: LISINOPRIL 2.5MG TABLET PO SCH (08:34)
[2019-12-13] MEDS: CARVEDILOL 3.125 MG TABLET PO SCH ×2 (08:34→21:19)
[2019-12-13] MEDS: POTASSIUM CHLORIDE 10MEQ TABLET SR PO SCH (08:34)
[2019-12-13] MEDS: BLOOD SUGAR DIAGNOSTIC STRIP TEST SCH ×4 (08:35→21:53)
[2019-12-13] MEDS: KETOROLAC 15MG/ML VIAL IV PRN (12:24)
[2019-12-13] MEDS: ATORVASTATIN CALCIUM 40MG TABLET PO SCH (21:19)
[2019-12-14] VITALS (35 sets, daily range): BP systolic 97–156; BP diastolic 58–122
[2019-12-14 06:03] LABS: HEMATOCRIT. 36.9 % (42.0-52.0); HEMOGLOBIN. 12.6 g/dL (14.0-18.0); MEAN CORPUSCULAR HEMOGLOBIN 29.3 pg (28.0-32.0); MEAN CORPUSCULAR VOLUME 85.8 fL (80.0-94.0); MEAN PLATELET VOLUME 9.5 fl (7.4-10.4); PLATELET 151 x1000/uL (130-400); RED CELL DISTRIBUTION WIDTH 15.6 % (11.6-14.6)
[2019-12-14 06:08] LABS: CHLORIDE 107 mEq/L (98-107)
[2019-12-14] MEDS: INSULIN LISPRO 100 UNITS/ML SUBCUT SCH ×4 (08:20→20:34)
[2019-12-14] MEDS: BLOOD SUGAR DIAGNOSTIC STRIP TEST SCH ×4 (08:35→20:27)
[2019-12-14 08:58] LABS: PLATELET ESTIMATE NORMAL
[2019-12-14] MEDS: CARVEDILOL 3.125 MG TABLET PO SCH ×2 (08:59→20:33)
[2019-12-14] MEDS: PANTOPRAZOLE SODIUM 40 MG/VIAL IV SCH (08:59)
[2019-12-14] MEDS: LISINOPRIL 2.5MG TABLET PO SCH (08:59)
[2019-12-14] MEDS: POTASSIUM CHLORIDE 10MEQ TABLET SR PO SCH (08:59)
[2019-12-14] MEDS: ASPIRIN 325MG TABLET PO SCH (08:59)
[2019-12-14] MEDS: FUROSEMIDE 20MG/2ML VIAL IVP SCH (08:59)
[2019-12-14] MEDS: ATORVASTATIN CALCIUM 40MG TABLET PO SCH (20:33)
[2019-12-15] VITALS (34 sets, daily range): BP systolic 115–167; BP diastolic 62–120
[2019-12-15 05:51] LABS: CHLORIDE 107 mEq/L (98-107)
[2019-12-15 05:52] LABS: HEMATOCRIT. 38.2 % (42.0-52.0); HEMOGLOBIN. 12.6 g/dL (14.0-18.0); MEAN CORPUSCULAR HEMOGLOBIN 28.8 pg (28.0-32.0); MEAN CORPUSCULAR VOLUME 86.9 fL (80.0-94.0); MEAN PLATELET VOLUME 9.7 fl (7.4-10.4); PLATELET 151 x1000/uL (130-400); RED BLOOD CELL COUNT 4.39 mill/uL (4.7-6.1); RED CELL DISTRIBUTION WIDTH 15.4 % (11.6-14.6)
[2019-12-15 08:11] LABS: PLATELET ESTIMATE NORMAL
[2019-12-15] MEDS: PANTOPRAZOLE SODIUM 40 MG/VIAL IV SCH (08:35)
[2019-12-15] MEDS: POTASSIUM CHLORIDE 10MEQ TABLET SR PO SCH (08:36)
[2019-12-15] MEDS: ASPIRIN 325MG TABLET PO SCH (08:36)
[2019-12-15] MEDS: CARVEDILOL 3.125 MG TABLET PO SCH (08:36)
[2019-12-15] MEDS: FUROSEMIDE 20MG/2ML VIAL IVP SCH (08:36)
[2019-12-15] MEDS: LISINOPRIL 2.5MG TABLET PO SCH (08:36)
[2019-12-15] MEDS: INSULIN LISPRO 100 UNITS/ML SUBCUT SCH ×4 (08:37→21:36)
[2019-12-15] MEDS: BLOOD SUGAR DIAGNOSTIC STRIP TEST SCH ×4 (08:37→21:37)
[2019-12-15] MEDS ORDERED: AMLODIPINE 5MG TABLET PO NR (14:00)
[2019-12-15] MEDS ORDERED: NITROGLYCERIN 0.4MG TABLET SL SL PRN (18:45)
[2019-12-15] MEDS ORDERED: ACETAMINOPHEN 325MG TABLET PO PRN (18:45)
[2019-12-15] MEDS ORDERED: DOCUSATE SODIUM 100MG CAPSULE PO SCH (21:00)
[2019-12-15] MEDS ORDERED: BISACODYL 10MG SUPP PR PRN (21:00)
[2019-12-15 21:13] LABS: INR 1.1
[2019-12-15] MEDS: ATORVASTATIN CALCIUM 40MG TABLET PO SCH (21:35)
[2019-12-16] VITALS (45 sets, daily range): BP systolic 103–158; BP diastolic 62–131
[2019-12-16 05:52] LABS: CHLORIDE 105 mEq/L (98-107)
[2019-12-16 06:04] LABS: HEMATOCRIT. 39.6 % (42.0-52.0); HEMOGLOBIN. 13.1 g/dL (14.0-18.0); MEAN CORPUSCULAR HEMOGLOBIN 28.7 pg (28.0-32.0); MEAN CORPUSCULAR VOLUME 86.9 fL (80.0-94.0); MEAN PLATELET VOLUME 9.6 fl (7.4-10.4); PLATELET 179 x1000/uL (130-400); RED BLOOD CELL COUNT 4.55 mill/uL (4.7-6.1); RED CELL DISTRIBUTION WIDTH 15.4 % (11.6-14.6)
[2019-12-16] MEDS ORDERED: LIDOCAINE HCL 1% 20ML VIAL (Pyxis) INJ ONE (07:37)
[2019-12-16] MEDS ORDERED: GENTAMICIN/NS IRRIGATION 500 ML IR ONE (07:39)
[2019-12-16] MEDS: BLOOD SUGAR DIAGNOSTIC STRIP TEST SCH ×3 (07:50→21:54)
[2019-12-16 08:02] LABS: PLATELET ESTIMATE NORMAL
[2019-12-16] MEDS: INSULIN LISPRO 100 UNITS/ML SUBCUT SCH ×4 (08:20→22:01)
[2019-12-16] MEDS ORDERED: FENTANYL CITRATE/PF 50MCG/ML 2ML VIAL ONE ×2 (08:51→09:08)
[2019-12-16] MEDS ORDERED: MIDAZOLAM HCL 2 MG/2 ML VIAL ONE ×2 (08:51→09:08)
[2019-12-16] MEDS ORDERED: PROPOFOL 200MG/20ML VIAL IV ONE (09:02)
[2019-12-16] MEDS ORDERED: CEFAZOLIN 1000MG PREMIX 100 ML IV ONE (09:05)
[2019-12-16] MEDS ORDERED: NITROGLYCERIN 50MG PREMIX 250 ML IV ONE (09:41)
[2019-12-16] MEDS ORDERED: MORPHINE SULFATE 2 MG/ML CPJ (NOT FOR IM USE) IV PRN (10:30)
[2019-12-16] MEDS: HYDROCODONE/ACETAMINOPHEN 5/325MG TABLET PO PRN ×2 (11:40→21:43)
[2019-12-16] MEDS: POTASSIUM CHLORIDE 10MEQ TABLET SR PO SCH (11:40)
[2019-12-16] MEDS: ASPIRIN 325MG TABLET PO SCH (11:40)
[2019-12-16] MEDS: FUROSEMIDE 20MG/2ML VIAL IVP SCH (13:53)
[2019-12-16] MEDS ORDERED: CEFAZOLIN SODIUM 1000MG/VIAL IV SCH (14:00)
[2019-12-16] MEDS: ATORVASTATIN CALCIUM 40MG TABLET PO SCH (21:25)
[2019-12-16] MEDS: CARVEDILOL 3.125 MG TABLET PO SCH (21:25)
[2019-12-17] VITALS (34 sets, daily range): BP systolic 91–157; BP diastolic 47–109
[2019-12-17] MEDS: CEFAZOLIN 1000MG PREMIX 50 ML IV SCH ×2 (01:06→08:41)
[2019-12-17 06:07] LABS: HEMATOCRIT. 39.5 % (42.0-52.0); HEMOGLOBIN. 12.9 g/dL (14.0-18.0); MEAN CORPUSCULAR HEMOGLOBIN 28.3 pg (28.0-32.0); MEAN CORPUSCULAR VOLUME 86.7 fL (80.0-94.0); MEAN PLATELET VOLUME 9.7 fl (7.4-10.4); PLATELET 187 x1000/uL (130-400); RED BLOOD CELL COUNT 4.56 mill/uL (4.7-6.1); RED CELL DISTRIBUTION WIDTH 15.4 % (11.6-14.6)
[2019-12-17 06:52] LABS: CHLORIDE 105 mEq/L (98-107)
[2019-12-17] MEDS: BLOOD SUGAR DIAGNOSTIC STRIP TEST SCH ×2 (07:50→13:02)
[2019-12-17 08:06] LABS: PLATELET ESTIMATE NORMAL
[2019-12-17] MEDS: POTASSIUM CHLORIDE 10MEQ TABLET SR PO SCH (08:41)
[2019-12-17] MEDS: FUROSEMIDE 20MG/2ML VIAL IVP SCH (08:41)
[2019-12-17] MEDS: ASPIRIN 325MG TABLET PO SCH (08:42)
[2019-12-17] MEDS: CARVEDILOL 3.125 MG TABLET PO SCH (08:42)
[2019-12-17] MEDS: LISINOPRIL 2.5MG TABLET PO SCH ×2 (08:42→09:00)
[2019-12-17] MEDS: AMLODIPINE 5MG TABLET PO SCH ×2 (08:43→09:00)
[2019-12-17] MEDS: HYDROCODONE/ACETAMINOPHEN 5/325MG TABLET PO PRN (08:44)
[2019-12-17] MEDS: INSULIN LISPRO 100 UNITS/ML SUBCUT SCH ×2 (08:45→13:02)
== END 2019-12-17 15:40 | disposition home or self-care (01) | DRG 242 ==
LOC: ER 12:56 → CVICU 15:19 → SUPCPDRO 15:31 → ENRESERV 12-12 07:27 → CVICU 12-12 08:38
PROVIDERS: ADMIT Internal Medicine; ATTEND Internal Medicine
PROC: 02HV33Z Insertion of Infusion Device into Superior Vena Cava, Percutaneous Approach (ICD-10-PCS; 2019-12-11)
PROC: B548ZZA Ultrasonography of Superior Vena Cava, Guidance (ICD-10-PCS; 2019-12-11)
PROC: 4A023N7 Measurement of Cardiac Sampling and Pressure, Left Heart, Percutaneous Approach (ICD-10-PCS; 2019-12-12)
PROC: B211YZZ Fluoroscopy of Multiple Coronary Arteries using Other Contrast (ICD-10-PCS; 2019-12-12)
PROC: 0JH606Z Insertion of Pacemaker, Dual Chamber into Chest Subcutaneous Tissue and Fascia, Open Approach (ICD-10-PCS; principal; 2019-12-16)
PROC: 02H63JZ Insertion of Pacemaker Lead into Right Atrium, Percutaneous Approach (ICD-10-PCS; 2019-12-16)
PROC: 02HK3JZ Insertion of Pacemaker Lead into Right Ventricle, Percutaneous Approach (ICD-10-PCS; 2019-12-16)
DX: I21.4 Non-ST elevation (NSTEMI) myocardial infarction (principal); N17.0 Acute kidney failure with tubular necrosis; I44.2 Atrioventricular block, complete; I25.110 Atherosclerotic heart disease of native coronary artery with unstable angina pectoris; E11.65 Type 2 diabetes mellitus with hyperglycemia; D63.8 Anemia in other chronic diseases classified elsewhere; F10.10 Alcohol abuse, uncomplicated; E78.00 Pure hypercholesterolemia, unspecified; E78.5 Hyperlipidemia, unspecified; I11.9 Hypertensive heart disease without heart failure; Z79.4 Long term (current) use of insulin; Z79.02 Long term (current) use of antithrombotics/antiplatelets; Z86.73 Personal history of transient ischemic attack (TIA), and cerebral infarction without residual deficits; Z82.49 Family history of ischemic heart disease and other diseases of the circulatory system; Z95.0 Presence of cardiac pacemaker; Z79.899 Other long term (current) drug therapy; Z90.49 Acquired absence of other specified parts of digestive tract
CPT/HCPCS: 33208; 36415; 36600; 71045; 76937; 80048; 80053; 80061; 80320; 82375; 82550; 82553; 82607; 82746; 82805; 82962; 83036; 83540; 83550; 83880; 84484; 85025; 93005; 93306; 93458; 93880; 93970; 97162; 97166; 99291; C1725; C1769; C1785; C1887; C1893; C1898; C9113; J0610; J0690; J1265; J1644; J1650; J1815; J1885; J1940; J2250; J2405; J2704; J3010; J3411; J3490; J7030; J7060; Q9967; G0480

== ENCOUNTER 2021-09-13 21:29 | Inpatient (IN) | payer MEDICARE, OTHER ==
[~2021-09-13] VITALS: Ht 182.9 cm; Wt 88.5 kg
[~2021-09-13 21:29] MED LIST changes: +ATOR-2 PO; +CLOP75TA33 MT; +FE300LUD MT; +FOLI-43 PO; -GABA-531 MT; +GABA-532 MT; +GLIP5TAB12 PO; +LISI-186 PO; -NAPR500T7 MT; +PANT40SU PO; +THIA50TA12 MT; -VERA240C2 MT
[2021-09-13] MEDS ORDERED: SODIUM CHLORIDE 0.9% 1,000 ML IV ONE (22:45)
[2021-09-13 23:51] LABS: BASOPHILS % 0.9 % (0.0-2.0); EOSINOPHILS % 1.2 % (0.0-5.0); HEMATOCRIT. 43.2 % (42.0-52.0); HEMOGLOBIN. 13.7 g/dL (14.0-18.0); LYMPHOCYTES % 38.9 % (20.0-50.0); MEAN CORPUSCULAR HEMOGLOBIN 28.5 pg (28.0-32.0); MEAN CORPUSCULAR VOLUME 89.6 fL (80.0-94.0); MEAN PLATELET VOLUME 8.1 fl (7.4-10.4); MONOCYTES % 12.1 % (2.0-8.0); NEUTROPHILS % 46.9 % (40.0-76.0); PLATELET 224 x1000/uL (130-400); RED BLOOD CELL COUNT 4.83 mill/uL (4.7-6.1); RED CELL DISTRIBUTION WIDTH 16.1 % (11.6-14.6)
[2021-09-13 23:57] LABS: CHLORIDE 114 mEq/L (98-107)
[2021-09-14 00:19] LABS: ETHANOL BLOOD 350 mg/dL
[2021-09-14] MEDS ORDERED: HYDRALAZINE 20MG/ML VIAL IV PRN (08:00)
[2021-09-14] MEDS ORDERED: DOCUSATE SODIUM 100MG CAPSULE PO PRN (08:00)
[2021-09-14] MEDS ORDERED: HYDROCODONE/ACETAMINOPHEN 5/325MG TABLET PO PRN (08:00)
[2021-09-14] MEDS ORDERED: ACETAMINOPHEN 325MG TABLET PO PRN (08:00)
[2021-09-14] MEDS ORDERED: DEXTROSE 50% WATER 50ML SYRINGE IV PRN (08:00)
[2021-09-14] MEDS ORDERED: MAGNESIUM/ALUMINUM HYDROXIDE/SIMETHICONE 30ML UDC PO PRN (08:00)
[2021-09-14] MEDS ORDERED: DIPHENHYDRAMINE 50MG/ML VIAL IV PRN (08:00)
[2021-09-14] MEDS: SODIUM CHLORIDE 0.45% 1,000 ML IV SCH (08:00)
[2021-09-14] MEDS ORDERED: MORPHINE SULFATE 2 MG/ML CPJ (NOT FOR IM USE) IV PRN (08:00)
[2021-09-14] MEDS ORDERED: IPRATROPIUM/ALBUTEROL 0.5-3(2.5)MG/3ML NEB HHN PRN (08:00)
[2021-09-14] MEDS ORDERED: LORAZEPAM 2MG/ML CPJ IV PRN (08:00)
[2021-09-14] MEDS ORDERED: ONDANSETRON HCL 4MG/2ML INJ IV PRN (08:00)
[2021-09-14] MEDS ORDERED: CLONIDINE 0.1MG TABLET PO PRN (08:00)
[2021-09-14] MEDS ORDERED: GUAIFENESIN 200MG/10ML SUGAR FREE UDC PO PRN (08:00)
[2021-09-14] MEDS: INSULIN LISPRO 100 UNITS/ML SUBCUT SCH ×4 (08:20→21:00)
[2021-09-14] MEDS ORDERED: NALOXONE HCL 0.4MG/ML VIAL IV PRN (09:00)
[2021-09-14] MEDS: THIAMINE HCL 100MG TABLET PO SCH (09:00)
[2021-09-14] MEDS: BLOOD SUGAR DIAGNOSTIC STRIP TEST SCH ×4 (09:00→21:14)
[2021-09-14] MEDS: FOLIC ACID 1MG TABLET PO SCH (09:00)
[2021-09-14] MEDS: MULTIVITAMINS,THER W-MINERALS TABLET PO SCH (09:00)
[2021-09-14] MEDS: SODIUM CHLORIDE 0.9% INJ 3ML FLUSH IVF SCH ×2 (14:05→21:52)
[2021-09-14 15:30] VITALS: BP 151/98
[2021-09-14 16:15] VITALS: BP 151/98
[2021-09-14 18:31] LABS: CREATINE KINASE MB FRACTION 3.5 ng/mL (0.5-3.6)
[2021-09-14 18:32] LABS: T4 FREE 0.69 ng/dL (0.76-1.46)
[2021-09-14 20:00] VITALS: BP 137/93
[2021-09-15] VITALS: BP 136/85
[2021-09-15 00:44] LABS: CREATINE KINASE MB FRACTION 2.6 ng/mL (0.5-3.6)
[2021-09-15 04:00] VITALS: BP 143/99
[2021-09-15] MEDS: SODIUM CHLORIDE 0.45% 1,000 ML IV SCH (04:00)
[2021-09-15] MEDS: BLOOD SUGAR DIAGNOSTIC STRIP TEST SCH ×2 (06:36→12:20)
[2021-09-15] MEDS: SODIUM CHLORIDE 0.9% INJ 3ML FLUSH IVF SCH ×2 (06:37→14:11)
[2021-09-15 07:01] LABS: MEAN CORPUSCULAR HEMOGLOBIN 28.9 pg (28.0-32.0); MEAN CORPUSCULAR VOLUME 88.8 fL (80.0-94.0); MEAN PLATELET VOLUME 8.9 fl (7.4-10.4); PLATELET 202 x1000/uL (130-400); RED CELL DISTRIBUTION WIDTH 15.5 % (11.6-14.6)
[2021-09-15 07:06] LABS: CHLORIDE 113 mEq/L (98-107)
[2021-09-15 07:13] LABS: CREATINE KINASE 100 IU/L (39-308)
[2021-09-15] MEDS: INSULIN LISPRO 100 UNITS/ML SUBCUT SCH ×2 (07:18→12:50)
[2021-09-15 07:22] LABS: CREATINE KINASE MB FRACTION 2.3 ng/mL (0.5-3.6)
[2021-09-15] MEDS: THIAMINE HCL 100MG TABLET PO SCH (08:10)
[2021-09-15] MEDS: MULTIVITAMINS,THER W-MINERALS TABLET PO SCH (08:10)
[2021-09-15] MEDS: FOLIC ACID 1MG TABLET PO SCH (08:10)
[2021-09-15 08:16] VITALS: BP 148/95
[2021-09-15 12:00] VITALS: BP 145/96
[2021-09-15 12:23] LABS: PLATELET ESTIMATE NORMAL
[2021-09-15] MEDS ORDERED: SODIUM POLYSTYRENE SULFONATE 15 G/60 ML BOT PO NR (12:30)
[2021-09-15] MEDS ORDERED: CARVEDILOL 3.125 MG TABLET PO SCH (13:00)
[2021-09-15] MEDS ORDERED: SODIUM CHLORIDE 0.9% 1,000 ML IV SCH (13:00)
[2021-09-15 16:00] VITALS: BP 148/103
[2021-09-15 16:36] VITALS: BP 148/103
[2021-09-16] MEDS ORDERED: ASPIRIN 81MG TABLET PO SCH (09:00)
== END 2021-09-15 17:42 | disposition home health service (06) | DRG 69 ==
LOC: ER 21:29 → 6WST 09-14 01:57 → ENRESERV 09-14 13:01
PROVIDERS: ADMIT Internal Medicine; ATTEND Internal Medicine
DX: G45.9 Transient cerebral ischemic attack, unspecified (principal); I25.10 Atherosclerotic heart disease of native coronary artery without angina pectoris; F10.129 Alcohol abuse with intoxication, unspecified; E11.9 Type 2 diabetes mellitus without complications; Y90.8 Blood alcohol level of 240 mg/100 ml or more; Z79.899 Other long term (current) drug therapy; Z86.73 Personal history of transient ischemic attack (TIA), and cerebral infarction without residual deficits; Z82.49 Family history of ischemic heart disease and other diseases of the circulatory system; Z95.0 Presence of cardiac pacemaker
CPT/HCPCS: 36415; 71045; 80053; 80061; 80320; 82550; 82553; 82962; 83036; 83880; 84439; 84443; 84484; 85025; 85379; 93005; 93306; 93970; 99285; J7030; G0480